=== PATIENT | female | born 1965 | race Caucasian/White ===

== ENCOUNTER 2017-12-16 14:01 | Emergency (ER) | payer OTHER ==
[2017-12-16 14:14] VITALS: BP 161/94
[2017-12-16] MEDS ORDERED: Fosphenytoin 1,000 MG.PE in Sodium Chloride 0.9% 50 ML IV ONE (14:27)
[2017-12-16] MEDS ORDERED: Sodium Chloride 0.9% 10 ML Syringe FLUSH PRN (14:27)
--- NOTE | 2017-12-16 16:20 | EDM.PDOC ---
ED HPI GENERAL MEDICAL PROBLEM - General Chief Complaint: ENT Problem Stated Complaint: BODY PAIN Time Seen by Provider: 12/16/17 14:09 Source of Information: Reports: Patient History Limitations: Reports: No Limitations - History of Present Illness INITIAL COMMENTS - FREE TEXT/NARRATIVE: The patient presents with right facial pain. She has a history of trigeminal neuralgia. She was at the [facility] and she had a nerve ablation done. She got home yesterday. She had more pain today. She called her doctor and he recommended some fosphenytoin. She has no fever, chills, cough, chest pain, abdominal pain, nausea and vomiting. She has no numbness or weakness. Onset: Gradual Duration: Day(s): Location: Reports: Face Quality: Reports: Sharp Severity: Severe Improves with: Reports: None Worsens with: Reports: None Associated Symptoms: Reports: No Other Symptoms - Related Data Allergies Allergy/AdvReac Type Severity Reaction Status Date / Time topiramate Allergy Rash Verified 02/25/16 12:15 Home Meds: Home Meds Cyanocobalamin (Vitamin B-12) [Vitamin B12] 2,500 mcg PO DAILY 02/25/16 [History ] Ibuprofen [Ibuprofen Ib] 400 mg PO DAILY PRN 02/25/16 [History] Nortriptyline 25 mg PO BEDTIME 02/25/16 [History] Ascorbic Acid [C-1000] 1,000 mg PO DAILY 12/16/17 [History] Baclofen 270 mg SUBCNJ DAILY 12/16/17 [History] Cranberry 200 mg PO DAILY 12/16/17 [History] FLUoxetine [PROzac] 40 mg PO DAILY 12/16/17 [History] Loratadine [Alavert] 10 mg PO DAILY 12/16/17 [History] Phenytoin 200 mg PO BEDTIME 12/16/17 [History] Phenytoin 300 mg PO DAILY 12/16/17 [History] SUMAtriptan Succinate [Imitrex] 100 mg PO DAILY 12/16/17 [History] Past Medical History - Past Health History Medical/Surgical History: Denies Medical/Surgical History Neurological History: Reports: MS Social & Family History - Family History Family Medical History: Noncontributory - Tobacco Use Smoking Status *Q: Never Smoker - Caffeine Use Caffeine Use: Reports: Coffee - Recreational Drug Use Recreational Drug Use: No ED ROS ENT - Review of Systems Review Of Systems: See Below Constitutional: Reports: No Symptoms HEENT: Reports: Other (Right facial pain) Respiratory: Reports: No Symptoms Cardiovascular: Reports: No Symptoms Endocrine: Reports: No Symptoms GI/Abdominal: Reports: No Symptoms : Reports: No Symptoms Musculoskeletal: Reports: No Symptoms ED EXAM, ENT - Physical Exam Exam: See Below Exam Limited By: No Limitations General Appearance: Alert, No Apparent Distress Ears: Normal External Exam Nose: Normal Inspection Mouth/Throat: Normal Inspection Head: Atraumatic, Normocephalic Neck: Normal Inspection Respiratory/Chest: No Respiratory Distress, Lungs Clear, Normal Breath Sounds Cardiovascular: Regular Rate, Rhythm, No Edema, No Murmur GI/Abdominal: Soft, Non-Tender, No Organomegaly, No Mass Extremities: Normal Inspection Neurological: Alert, Oriented, No Motor/Sensory Deficits Course - Vital Signs Last Recorded V/S: Last Vital Signs Temp 97.5 F 12/16/17 14:12 Pulse 86 12/16/17 14:12 Resp 20 12/16/17 14:12 BP 161/94 H 12/16/17 14:12 Pulse Ox 100 12/16/17 14:12 - Orders/Labs/Meds Orders: Active Orders 24 hr Category Date Time Status Peripheral IV Care [RC] . DIRECTED Care 12/16/17 14:27 Active Sodium Chloride 0.9% [Saline Flush] Med 12/16/17 14:27 Active 10 ml FLUSH ASDIRECTED PRN Peripheral IV Insertion Adult [OM.PC] Routine Oth 12/16/17 14:27 Ordered Medication Orders Sodium Chloride (Saline Flush) 10 ml FLUSH ASDIRECTED PRN PRN Reason: Keep Vein Open Last Admin: 12/16/17 15:37 Dose: 10 ml Meds: Medications Generic Name Dose Route Start Last Admin Trade Name Freq PRN Reason Stop Dose Admin Sodium Chloride 10 ml 12/16/17 14:27 12/16/17 15:37 Saline Flush FLUSH 10 ml ASDIRECTED PRN Administration Keep Vein Open Discontinued Medications Generic Name Dose Route Start Last Admin Trade Name Freq PRN Reason Stop Dose Admin Fosphenytoin Sodium 1,000 mg. 70 mls @ 150 mls/hr 12/16/17 14:27 12/16/17 15: 37 pe/ Sodium Chloride IV 12/16/17 14:54 Not Given NOW ONE Fosphenytoin Sodium 1,000 mg. 120 mls @ 240 mls/hr 12/16/17 15:30 12/16/17 15 :38 pe/ Sodium Chloride IV 12/16/17 15:59 Not Given NOW ONE Fosphenytoin Sodium 1,000 mg. 120 mls @ 240 mls/hr 12/16/17 15:45 12/16/17 15 :35 pe/ Sodium Chloride IV 12/16/17 16:14 240 mls/hr NOW ONE Administration - Re-Assessments/Exams Free Text/Narrative Re-Assessment/Exam: 12/16/17 16:19 I ordered an IV saline lock fosphenytoin 1 gram IV. 12/16/17 16:20 She feels better. I will discharge her home. Departure - Departure Time of Disposition: 16:20 Disposition: Home, Self-Care 01 Condition: Good Clinical Impression: Trigeminal neuralgia of right side of face - Discharge Information Referrals: Milena Yeager, [employer] [Primary Care Provider] - Additional Instructions: Take your medication as prescribed. Please return if you are worse. - My Orders Last 24 Hours: My Active Orders 12/16/17 14:27 Peripheral IV Care [RC] . DIRECTED Sodium Chloride 0.9% [Saline Flush] 10 ml FLUSH ASDIRECTED PRN Peripheral IV Insertion Adult [OM.PC] Routine - Assessment/Plan Last 24 Hours: My Active Orders 12/16/17 14:27 Peripheral IV Care [RC] . DIRECTED Sodium Chloride 0.9% [Saline Flush] 10 ml FLUSH ASDIRECTED PRN Peripheral IV Insertion Adult [OM.PC] Routine
== END 2017-12-16 16:32 | disposition home or self-care (01) ==
LOC: JD.ED 14:01
DX: G50.0 Trigeminal neuralgia (principal); Z88.8 Allergy status to other drugs, medicaments and biological substances; Z79.899 Other long term (current) drug therapy
CPT/HCPCS: 96365; 99283; J7030; J7050; Q2009; 99284

== ENCOUNTER 2019-06-19 17:48 | Emergency (ER) | payer OTHER ==
[2019-06-19 18:01] VITALS: BP 166/102; PULSE 113
[2019-06-19] MEDS ORDERED: Sodium Chloride 0.9% 10 ML Syringe FLUSH PRN (18:16)
--- NOTE | 2019-06-19 18:23 | EDM.PDOC ---
ED HPI GENERAL MEDICAL PROBLEM - General Chief Complaint: Neurological Problem Stated Complaint: CANT FEEL LEGS HAS MS Time Seen by Provider: 06/19/19 17:58 Source of Information: Reports: Patient, Family, Old Records, RN Notes Reviewed History Limitations: Reports: No Limitations - History of Present Illness INITIAL COMMENTS - FREE TEXT/NARRATIVE: Patient is a 53-year-old female who presents to the ED for the evaluation of a possible exacerbation of her MS. Patient states she has been diagnosed with MS since 1992, her primary care physician is Milena Yeager. Patient notes that she does use a walker for ambulation at home on a regular basis. The states that however today she has been exquisitely weak, he notes that she has not been able to walk and he has had to carry her from point A to point B, patient states her pain is around a 9 out of 10 today. She states that her legs feel extremely heavy from the thighs downward, and states that she has decreased sensation to her legs as well. Patient notes this is happened only once or twice before, patient notes she has a history of recurrent UTIs, and sometimes the symptoms seem to worsen when she has a UTI. Patient states she had felt chilled today, but has not had any documented fever, but the states she feels warm to touch when she states that she is chilled. The appreciated that her urine was a little bit more cloudy than it normally is, but it is not dark yellow, or malodorous. Patient did require IV steroids in 2015 for an exacerbation of her multiple sclerosis. Patient's neurologist is Dr. Randall. Bilateral Lower Leg Pain Score (Numeric/FACES): 9 - Related Data Allergies Allergy/AdvReac Type Severity Reaction Status Date / Time topiramate Allergy Rash Verified 02/25/16 12:15 Home Meds: Home Meds Cyanocobalamin (Vitamin B-12) [Vitamin B12] 2,500 mcg PO DAILY 02/25/16 [History ] Nortriptyline 25 mg PO BEDTIME 02/25/16 [History] Ascorbic Acid [C-1000] 1,000 mg PO DAILY 12/16/17 [History] Baclofen 270 mg SUBCNJ DAILY 12/16/17 [History] Cranberry 200 mg PO DAILY 12/16/17 [History] FLUoxetine [PROzac] 40 mg PO DAILY 12/16/17 [History] Loratadine [Alavert] 10 mg PO DAILY 12/16/17 [History] Phenytoin 300 mg PO BEDTIME 12/16/17 [History] Phenytoin 300 mg PO DAILY 12/16/17 [History] SUMAtriptan Succinate [Imitrex] 100 mg PO DAILY 12/16/17 [History] Cholecalciferol (Vitamin D3) [Vitamin D3] 5,000 unit PO DAILY 06/19/19 [History] Past Medical History - Past Health History Medical/Surgical History: Denies Medical/Surgical History Neurological History: Reports: MS Social & Family History - Family History Family Medical History: Noncontributory - Tobacco Use Smoking Status *Q: Never Smoker - Caffeine Use Caffeine Use: Reports: Coffee - Recreational Drug Use Recreational Drug Use: No ED ROS GENERAL - Review of Systems Review Of Systems: See Below Constitutional: Reports: Chills, Weakness (increased bilateral leg weakness, more than her normal baseline.). Denies: Fever, Malaise Respiratory: Denies: Shortness of Breath Cardiovascular: Denies: Chest Pain GI/Abdominal: Denies: Abdominal Pain, Diarrhea, Nausea, Vomiting : Denies: Dysuria, Frequency, Urgency Musculoskeletal: Reports: Leg Pain (bilateral) Neurological: Reports: Difficulty Walking (d/t generalized bilateral leg weakness.), Weakness (bilateral leg weakness, that is increased from her normal) . Denies: Numbness, Tingling ED EXAM, NEURO - Physical Exam Exam: See Below Exam Limited By: No Limitations General Appearance: Alert, WD/WN, No Apparent Distress Eye Exam: Bilateral Eye: EOMI, Normal Inspection, PERRL Throat/Mouth: Normal Inspection, Normal Lips, Normal Teeth, Normal Gums, Normal Oropharynx, Normal Voice, No Airway Compromise Head Exam: Atraumatic, Normocephalic Neck: Normal Inspection Respiratory/Chest: No Respiratory Distress, Lungs Clear, Normal Breath Sounds, No Accessory Muscle Use, Chest Non-Tender Cardiovascular: Normal Peripheral Pulses, Regular Rate, Rhythm, No Edema, No Murmur GI/Abdominal: Normal Bowel Sounds, Soft, Non-Tender, No Distention, No Mass Neurological: Alert, Normal Mood/Affect, Normal Dorsiflexion, CN II-XII Intact ( grossly), Normal Plantar Flexion, No Motor/Sensory Deficits, Oriented x 3, Difficulty Walking (pt has generalized weakness, worse than normal baseline), Other (strength is symmetric bilaterally, slightly decreased, however she is able to resist me WNL). No: Abnormal Sensation, Abnormal Light Touch, Abnormal Pin Prick, Abn 2 Pt Discrimination, Saddle Anesthesia Extremities: Normal Inspection, Normal Range of Motion, Normal Capillary Refill Psychiatric: Normal Affect, Normal Mood Skin Exam: Warm, Dry, Intact, Normal Color, No Rash Course - Vital Signs Last Recorded V/S: Last Vital Signs Temp 100.6 F 06/19/19 19:03 Pulse 113 H 06/19/19 17:57 Resp 20 06/19/19 17:57 BP 166/102 H 06/19/19 17:57 Pulse Ox 98 06/19/19 17:57 - Orders/Labs/Meds Orders: Active Orders 24 hr Category Date Time Status Insert Tolentino Catheter [Insert Urinary Catheter] [OM.PC] Care 06/19/19 18:30 Ordered Stat Peripheral IV Care [RC] . DIRECTED Care 06/19/19 18:16 Active Urinary Catheter Assessment [RC] ASDIRECTED Care 06/19/19 18:30 Active Sodium Chloride 0.9% [Saline Flush] Med 06/19/19 18:16 Active 10 ml FLUSH ASDIRECTED PRN Peripheral IV Insertion Adult [OM.PC] Stat Oth 06/19/19 18:16 Ordered Medication Orders Sodium Chloride (Saline Flush) 10 ml FLUSH ASDIRECTED PRN PRN Reason: Keep Vein Open Last Admin: 06/19/19 18:25 Dose: 10 ml Labs: Laboratory Tests 06/19/19 06/19/19 06/19/19 Range/Units 18:25 18:25 18:30 WBC 8.08 (3.98-10.04) K/mm3 RBC 4.45 (3.98-5.22) M/mm3 Hgb 13.6 (11.2-15.7) gm/dl Hct 40.7 (34.1-44.9) % MCV 91.5 (79.4-94.8) fl MCH 30.6 (25.6-32.2) pg MCHC 33.4 (32.2-35.5) g/dl RDW Std Deviation 42.8 (36.4-46.3) fL Plt Count 203 D (182-369) K/mm3 MPV 10.1 (9.4-12.3) fl Neut % (Auto) 83.4 H (34.0-71.1) % Lymph % (Auto) 6.4 L (19.3-51.7) % [place] % (Auto) 9.9 (4.7-12.5) % Eos % (Auto) 0.1 L (0.7-5.8) Baso % (Auto) 0.1 (0.1-1.2) % Neut # (Auto) 6.73 H (1.56-6.13) K/mm3 Lymph # (Auto) 0.52 L (1.18-3.74) K/mm3 [place] # (Auto) 0.80 H (0.24-0.36) K/mm3 Eos # (Auto) 0.01 L (0.04-0.36) K/mm3 Baso # (Auto) 0.01 (0.01-0.08) K/mm3 Manual Slide Review Normal smear Sodium 144 (136-145) mEq/L Potassium 3.8 (3.5-5.1) mEq/L Chloride 103 (98-107) mEq/L Carbon Dioxide 30 (21-32) mEq/L Anion Gap 14.8 (5-15) BUN 10 (7-18) mg/dL Creatinine 0.6 (0.55-1.02) mg/dL Est Cr Clr Drug Dosing 94.25 mL/min Estimated GFR (MDRD) > 60 (>60) mL/min BUN/Creatinine Ratio 16.7 (14-18) Glucose 123 H (74-106) mg/dL Calcium 9.1 (8.5-10.1) mg/dL Total Bilirubin 0.4 (0.2-1.0) mg/dL AST 14 L (15-37) U/L ALT 22 (14-59) U/L Alkaline Phosphatase 131 H (46-116) U/L Total Protein 8.0 (6.4-8.2) g/dl Albumin 4.5 (3.4-5.0) g/dl Globulin 3.5 gm/dL Albumin/Globulin Ratio 1.3 (1-2) Urine Color Light yellow (Yellow) Urine Appearance Slt cloudy H (Clear) Urine pH 8.5 H (5.0-8.0) Ur Specific [place] 1.020 (1.005-1.030) Urine Protein 1+ H (Negative) Urine Glucose (UA) Negative (Negative) Urine Ketones Negative (Negative) Urine Occult Blood Trace-intact H (Negative) Urine Nitrite Negative (Negative) Urine Bilirubin Negative (Negative) Urine Urobilinogen 1.0 (0.2-1.0) Ur Leukocyte Esterase Negative (Negative) Urine RBC 5-10 H (0-5) /hpf Urine WBC 0-5 (0-5) /hpf Ur Epithelial Cells 0-5 (0-5) /hpf Amorphous Sediment Many H (NOT SEEN) /hpf Urine Bacteria Few (FEW) /hpf Urine Mucus Few (FEW) /hpf Meds: Medications Generic Name Dose Route Start Last Admin Trade Name Freq PRN Reason Stop Dose Admin Sodium Chloride 10 ml 06/19/19 18:16 06/19/19 18:25 Saline Flush FLUSH 10 ml ASDIRECTED PRN Administration Keep Vein Open Discontinued Medications Generic Name Dose Route Start Last Admin Trade Name Freq PRN Reason Stop Dose Admin Acetaminophen 650 mg 06/19/19 18:42 06/19/19 19:03 Tylenol PO 06/19/19 18:43 650 mg NOW ONE Administration - Re-Assessments/Exams Free Text/Narrative Re-Assessment/Exam: 06/19/19 18:25 Patient presents to the ED for the evaluation of increased bilateral leg weakness and numbness. Since the patient has a history of recurrent UTIs that seem to exacerbate the symptoms, will get a catheterized urine specimen, obtain a CBC and CMP and place an IV line for initial management. If urinalysis is clean, no other focal lab abnormalities. We will consult neurology and possibly set her up for steroid therapy. 06/19/19 20:47 Patient's labs have resulted, and demonstrate no focal abnormalities, she does not have a UTI by lab standards at today's visit. I did call [facility] in [place] and was able to talk with the neurologist, Dr. Crain, he states that he is not familiar with the patient's course, so he would not feel comfortable saying to start IV steroids at this time, and he recommends that she have close follow-up with Dr. Randall, her neurologist, tomorrow morning, to see if he would like to order the IV steroids. At this time I did discuss this with the patient, and she is accepting of this plan at this time. I will fax my note to Dr. Randall's office, so he will have record of tonight's visit. Departure - Departure Time of Disposition: 20:48 Disposition: Home, Self-Care 01 Condition: Fair Clinical Impression: Multiple sclerosis exacerbation - Discharge Information *PRESCRIPTION DRUG MONITORING PROGRAM REVIEWED*: No *COPY OF PRESCRIPTION DRUG MONITORING REPORT IN PATIENT MARSHALL: No Instructions: Multiple Sclerosis Referrals: Milena Yeager, [employer] [Primary Care Provider] - Forms: ED Department Discharge Additional Instructions: You were evaluated in the ER today regarding your increased leg weakness. Your laboratory evaluation was essentially within normal limits, there are no acute focal abnormalities that require emergency attention. Your urinalysis was also negative for UTI. Your symptoms are most likely due to an exacerbation of your MS, the use of high-dose IV steroids, can have multiple systemic side effects. Neurology was consulted on your case, and they recommended close follow-up with your neurologist, Dr. Randall tomorrow, to see if he would be comfortable starting you on the high dose of steroids, since he is familiar your with your case. A copy of my note will be sent to his office, for his review tomorrow morning. Please return to the ER at any time if your symptoms change or worsen. Sepsis Event Note - Evaluation Sepsis Screening Result: No Definite Risk - Focused Exam Vital Signs: Vital Signs Temp Temp Pulse Resp BP Pulse Ox 06/19/19 19:03 100.6 F 06/19/19 17:57 98.4 F 113 H 20 166/102 H 98 Date Exam was Performed: 06/19/19 Time Exam was Performed: 20:47 - My Orders Last 24 Hours: My Active Orders 06/19/19 18:16 Peripheral IV Care [RC] . DIRECTED Sodium Chloride 0.9% [Saline Flush] 10 ml FLUSH ASDIRECTED PRN Peripheral IV Insertion Adult [OM.PC] Stat 06/19/19 18:30 Insert Tolentino Catheter [Insert Urinary Catheter] [OM.PC] Stat Urinary Catheter Assessment [RC] ASDIRECTED - Assessment/Plan Last 24 Hours: My Active Orders 06/19/19 18:16 Peripheral IV Care [RC] . DIRECTED Sodium Chloride 0.9% [Saline Flush] 10 ml FLUSH ASDIRECTED PRN Peripheral IV Insertion Adult [OM.PC] Stat 06/19/19 18:30 Insert Tol[place]ino Catheter [Insert Urinary Catheter] [OM.PC] Stat Urinary Catheter Assessment [RC] ASDIRECTED
[2019-06-19] MEDS ORDERED: Acetaminophen 325 MG Tab PO ONE (18:42)
== END 2019-06-19 21:10 | disposition home or self-care (01) ==
LOC: JD.ED 17:48
DX: G35 Multiple sclerosis (principal); Z79.899 Other long term (current) drug therapy; Z88.8 Allergy status to other drugs, medicaments and biological substances
CPT/HCPCS: 36415; 80053; 81001; 85025; 99284; A9270

== ENCOUNTER 2021-06-26 06:55 | Emergency (ER) | payer OTHER ==
[2021-06-26 07:35] VITALS: BP 132/88; PULSE 92
--- NOTE | 2021-06-26 07:44 | EDM.PDOC ---
ED HPI GENERAL MEDICAL PROBLEM - General Chief Complaint: General Stated Complaint: UTI LEG PAIN WEAKNESS Time Seen by Provider: 06/26/21 07:35 - History of Present Illness INITIAL COMMENTS - FREE TEXT/NARRATIVE: 55-year-old presents the emergency room with upper airway congestion and lower extremity weakness. Patient has a history of MS and oftentimes has UTIs that trigger her lower extremity weakness. And according to the patient is treating the UTIs makes her weakness better. Patient has not had the Covid vaccine. She is also had some upper airway congestion and runny nose symptoms for the last couple of days. Her weakness was first noticed on Monday but was very mild and progressively worsened to today, Monday. The patient is not aware of any fevers or chills. She has not had the Covid vaccine however had Covid back in March. For the last several days she has developed significant lower extremity weakness consistent with her MS flares. Her had to nearly carry her into the department. - Related Data Allergies Allergy/AdvReac Type Severity Reaction Status Date / Time Sulfa (Sulfonamide Allergy Hives Verified 06/26/21 07:35 Antibiotics) topiramate Allergy Rash Verified 02/25/16 12:15 Home Meds: Home Meds Cyanocobalamin (Vitamin B-12) [Vitamin B12] 2,500 mcg PO DAILY 02/25/16 [History] Nortriptyline 25 mg PO BEDTIME 02/25/16 [History] Ascorbic Acid [C-1000] 1,000 mg PO DAILY 12/16/17 [History] Baclofen 270 mg SUBCNJ DAILY 12/16/17 [History] Cranberry 200 mg PO DAILY 12/16/17 [History] FLUoxetine [PROzac] 40 mg PO DAILY 12/16/17 [History] Loratadine [Alavert] 10 mg PO DAILY 12/16/17 [History] Phenytoin 300 mg PO BEDTIME 12/16/17 [History] Phenytoin 300 mg PO DAILY 12/16/17 [History] SUMAtriptan succinate [Imitrex] 100 mg PO DAILY 12/16/17 [History] Cholecalciferol (Vitamin D3) [Vitamin D3] 5,000 unit PO DAILY 06/19/19 [History] Oseltamivir [Tamiflu] 75 mg PO BID #9 cap 06/26/21 [Rx] Past Medical History - Past Health History Medical/Surgical History: Denies Medical/Surgical History Neurological History: Reports: MS Social & Family History - Family History Family Medical History: No Pertinent Family History - Caffeine Use Caffeine Use: Reports: Coffee ED ROS GENERAL - Review of Systems Review Of Systems: See Below Constitutional: Reports: Weakness. Denies: Fever, Chills HEENT: Reports: Rhinitis. Denies: Ear Pain, Throat Pain Respiratory: Reports: No Symptoms Cardiovascular: Reports: No Symptoms GI/Abdominal: Reports: No Symptoms : Reports: No Symptoms Musculoskeletal: Reports: No Symptoms Skin: Reports: No Symptoms ED EXAM, GENERAL - Physical Exam Exam: See Below Exam Limited By: No Limitations General Appearance: Alert, No Apparent Distress Eye Exam: Bilateral Eye: Normal Inspection Ears: Normal External Exam, Normal Canal, Hearing Grossly Normal, Normal TMs Nose: Normal Inspection, Normal Mucosa, No Blood Throat/Mouth: Normal Inspection, Normal Lips, Normal Teeth, Normal Gums, Normal Oropharynx, Normal Voice, No Airway Compromise Head: Atraumatic, Normocephalic Neck: Normal Inspection, Supple, Non-Tender, Full Range of Motion. No: Lymphadenopathy (L), Lymphadenopathy (R) Respiratory/Chest: No Respiratory Distress, Lungs Clear, Normal Breath Sounds Cardiovascular: Regular Rate, Rhythm, No Edema, No Murmur GI/Abdominal: Normal Bowel Sounds, Soft, Non-Tender Back Exam: Normal Inspection, Other (She has generalized low back pain but attributes this to her back surgery she had done this last August.). No: CVA Tenderness (L), CVA Tenderness (R) Neurological: Alert, Oriented, Normal Cognition Course - Vital Signs Last Recorded V/S: Last Vital Signs Temp 36.4 C 06/26/21 07:30 Pulse 92 06/26/21 07:30 Resp 18 06/26/21 07:30 BP 132/88 06/26/21 07:30 Pulse Ox 96 06/26/21 07:30 - Orders/Labs/Meds Orders: Active Orders 24 hr Category Date Time Status Insert Tolentino Catheter [Insert Urinary Catheter] [OM.PC] Care 06/26/21 08:15 Ordered Q24H Urinary Catheter Assessment [RC] ASDIRECTED Care 06/26/21 08:14 Active Labs: Laboratory Tests 06/26/21 06/26/21 06/26/21 Range/Units 07:55 07:55 08:02 WBC 5.00 (3.98-10.04) K/mm3 RBC 4.67 (3.98-5.22) M/mm3 Hgb 13.2 D (11.2-15.7) gm/dl Hct 41.7 (34.1-44.9) % MCV 89.3 D (79.4-94.8) fl MCH 28.3 (25.6-32.2) pg MCHC 31.7 L (32.2-35.5) g/dl RDW Std Deviation 49.0 H (36.4-46.3) fL Plt Count 190 D (182-369) K/mm3 MPV 10.6 (9.4-12.3) fl Neut % (Auto) 74.2 H (34.0-71.1) % Lymph % (Auto) 13.4 L (19.3-51.7) % Logan % (Auto) 12.0 (4.7-12.5) % Eos % (Auto) 0 L (0.7-5.8) Baso % (Auto) 0.4 (0.1-1.2) % Neut # (Auto) 3.71 (1.56-6.13) K/mm3 Lymph # (Auto) 0.67 L (1.18-3.74) K/mm3 Logan # (Auto) 0.60 H (0.24-0.36) K/mm3 Eos # (Auto) 0.00 L (0.04-0.36) K/mm3 Baso # (Auto) 0.02 (0.01-0.08) K/mm3 Sodium 141 (136-145) mEq/L Potassium 3.2 L (3.5-5.1) mEq/L Chloride 102 (98-107) mEq/L Carbon Dioxide 32 (21-32) mEq/L Anion Gap 10.2 (5-15) BUN 16 (7-18) mg/dL Creatinine 0.7 (0.55-1.02) mg/dL Est Cr Clr Drug Dosing 82.67 mL/min Estimated GFR (MDRD) > 60 (>60) mL/min BUN/Creatinine Ratio 22.9 H (14-18) Glucose 103 H (70-99) mg/dL Calcium 8.5 (8.5-10.1) mg/dL Total Bilirubin 0.4 (0.2-1.0) mg/dL AST 20 (15-37) U/L ALT 21 (14-59) U/L Alkaline Phosphatase 96 (46-116) U/L Total Protein 7.7 (6.4-8.2) g/dl Albumin 3.8 (3.4-5.0) g/dl Globulin 3.9 gm/dL Albumin/Globulin Ratio 1.0 (1-2) Urine Color (Yellow) Urine Appearance (Clear) Urine pH (5.0-8.0) Ur Specific [place] (1.005-1.030) Urine Protein (Negative) Urine Glucose (UA) (Negative) Urine Ketones (Negative) Urine Occult Blood (Negative) Urine Nitrite (Negative) Urine Bilirubin (Negative) Urine Urobilinogen (0.2-1.0) Ur Leukocyte Esterase (Negative) Urine RBC (0-5) /hpf Urine WBC (0-5) /hpf Ur Epithelial Cells (0-5) /hpf Urine Bacteria (FEW) /hpf Urine Mucus (FEW) /hpf Influenza Type A RNA Positive H (NEGATIVE) Influenza Type B RNA Negative (NEGATIVE) SARS-CoV-2 RNA (DANE) Negative (NEGATIVE) 06/26/21 Range/Units 08:13 WBC (3.98-10.04) K/mm3 RBC (3.98-5.22) M/mm3 Hgb (11.2-15.7) gm/dl Hct (34.1-44.9) % MCV (79.4-94.8) fl MCH (25.6-32.2) pg MCHC (32.2-35.5) g/dl RDW Std Deviation (36.4-46.3) fL Plt Count (182-369) K/mm3 MPV (9.4-12.3) fl Neut % (Auto) (34.0-71.1) % Lymph % (Auto) (19.3-51.7) % Logan % (Auto) (4.7-12.5) % Eos % (Auto) (0.7-5.8) Baso % (Auto) (0.1-1.2) % Neut # (Auto) (1.56-6.13) K/mm3 Lymph # (Auto) (1.18-3.74) K/mm3 Logan # (Auto) (0.24-0.36) K/mm3 Eos # (Auto) (0.04-0.36) K/mm3 Baso # (Auto) (0.01-0.08) K/mm3 Sodium (136-145) mEq/L Potassium (3.5-5.1) mEq/L Chloride (98-107) mEq/L Carbon Dioxide (21-32) mEq/L Anion Gap (5-15) BUN (7-18) mg/dL Creatinine (0.55-1.02) mg/dL Est Cr Clr Drug Dosing mL/min Estimated GFR (MDRD) (>60) mL/min BUN/Creatinine Ratio (14-18) Glucose (70-99) mg/dL Calcium (8.5-10.1) mg/dL Total Bilirubin (0.2-1.0) mg/dL AST (15-37) U/L ALT (14-59) U/L Alkaline Phosphatase (46-116) U/L Total Protein (6.4-8.2) g/dl Albumin (3.4-5.0) g/dl Globulin gm/dL Albumin/Globulin Ratio (1-2) Urine Color Yellow (Yellow) Urine Appearance Clear (Clear) Urine pH 6.0 (5.0-8.0) Ur Specific [place] > or = 1.030 (1.005-1.030) Urine Protein 1+ H (Negative) Urine Glucose (UA) Negative (Negative) Urine Ketones 1+ H (Negative) Urine Occult Blood 2+ H (Negative) Urine Nitrite Negative (Negative) Urine Bilirubin 1+ H (Negative) Urine Urobilinogen 0.2 (0.2-1.0) Ur Leukocyte Esterase Negative (Negative) Urine RBC 0-5 (0-5) /hpf Urine WBC 0-5 (0-5) /hpf Ur Epithelial Cells 0-5 (0-5) /hpf Urine Bacteria Few (FEW) /hpf Urine Mucus Moderate H (FEW) /hpf Influenza Type A RNA (NEGATIVE) Influenza Type B RNA (NEGATIVE) SARS-CoV-2 RNA (DANE) (NEGATIVE) Meds: Medications Discontinued Medications Generic Name Dose Route Start Last Admin Trade Name Freq PRN Reason Stop Dose Admin Methylprednisolone Sodium 258 mls @ 258 mls/hr 06/26/21 09:55 06/26/21 10:40 Succinate 1,000 mg/ Sodium IV 06/26/21 09:56 258 mls/hr Chloride ONETIME ONE Administration Oseltamivir Phosphate 75 mg 06/26/21 09:56 06/26/21 10:40 Oseltamivir 75 Mg Cap PO 06/26/21 09:57 75 mg ONETIME ONE Administration - Re-Assessments/Exams Free Text/Narrative Re-Assessment/Exam: 06/26/21 10:01 Patient's case was discussed with Dr. Covarrubias, on-call neurologist at [facility] in [facility] for Dr. Randall, the patient's regular neurologist. His recommendation was offered a head CT this was declined by the patient she has had gradual onset of symptoms starting Monday. He also recommended high-dose steroids, 1000 mg of Solu-Medrol for the next 3 days. I discussed the pros and cons with the patient and in the setting of her being influenza A positive. She has a history of having UTIs triggered her MS in treating the UTIs makes her MS flares better. Steroids in the past seem to cause slight worsening then improvement when she has had these in the past. It is unclear how she will do with this but she is in agreement to trying it. Patient will also be started on Tamiflu. Patient's URI symptoms are going back nearly 36 to 48 hours. Departure - Departure Time of Disposition: 10:16 Disposition: Home, Self-Care 01 Clinical Impression: Multiple sclerosis, Influenza A, Multiple sclerosis exacerbation - Discharge Information Prescriptions: Oseltamivir [Tamiflu] 75 mg PO BID #9 cap Referrals: Milena Yeager, [employer] [Primary Care Provider] - Forms: ED Department Discharge Additional Instructions: Return to the emergency room with any questions problems or worsening symptoms. Follow-up with your neurologist on the phone on Monday. Return tomorrow and Monday for steroid infusions. You have been started on Tamiflu this was sent electronically to the [place] pharmacy in the [place] [place]. They are open between 1 and 3 this afternoon take 1 twice daily starting this evening until gone your first dose was given here in the emergency room. Sepsis Event Note (ED) - Evaluation Sepsis Screening Result: No Definite Risk - Focused Exam Vital Signs: Vital Signs Temp Pulse Resp BP Pulse Ox 06/26/21 07:30 36.4 C 92 18 132/88 96 - My Orders Last 24 Hours: My Active Orders 06/26/21 08:14 Urinary Catheter Assessment [RC] ASDIRECTED 06/26/21 08:15 Insert Tolentino Catheter [Insert Urinary Catheter] [OM.PC] Q24H - Assessment/Plan Last 24 Hours: My Active Orders 06/26/21 08:14 Urinary Catheter Assessment [RC] ASDIRECTED 06/26/21 08:15 Insert Tolentino Catheter [Insert Urinary Catheter] [OM.PC] Q24H
[2021-06-26 08:41] LABS: CORONAVIRUS COVID-19 NAA NEGATIVE (NEGATIVE)
[2021-06-26] MEDS ORDERED: Oseltamivir 75 MG Cap PO ONE (09:56)
== END 2021-06-26 11:58 | disposition home or self-care (01) ==
LOC: JD.ED 06:55
DX: G35 Multiple sclerosis (principal); J10.1 Influenza due to other identified influenza virus with other respiratory manifestations; Z88.2 Allergy status to sulfonamides; Z88.8 Allergy status to other drugs, medicaments and biological substances; Z79.899 Other long term (current) drug therapy; Z20.822 Contact with and (suspected) exposure to COVID-19
CPT/HCPCS: 0240U; 36415; 80053; 81001; 85025; 96365; 99284; A9270; J2930; J7050

== ENCOUNTER 2022-06-28 15:50 | Emergency (ER) | payer BC, OTHER ==
[2022-06-28 17:22] VITALS: BP 160/106; PULSE 116
[2022-06-28] MEDS ORDERED: Ondansetron 4 MG/2 ML SDV IVPUSH ONE (18:24)
[2022-06-28] MEDS ORDERED: Lactated Ringers 1,000 ML IV SCH (18:30)
[2022-06-28] MEDS ORDERED: methylPREDNISolone Sodium Succinate 125 MG/2 ML SDV IVPUSH STA (21:20)
== END 2022-06-28 23:00 | disposition home or self-care (01) ==
LOC: JD.ED 15:50
DX: S86.912A Strain of unspecified muscle(s) and tendon(s) at lower leg level, left leg, initial encounter (principal); G35 Multiple sclerosis; B97.4 Respiratory syncytial virus as the cause of diseases classified elsewhere; Z88.2 Allergy status to sulfonamides; Z88.8 Allergy status to other drugs, medicaments and biological substances
CPT/HCPCS: 36415; 51702; 73562; 80053; 81001; 85025; 87086; 96361; 96374; 96375; 99283; J2405; J2930; J7120

== ENCOUNTER 2023-07-04 16:58 | Emergency (ER) | payer BC ==
[2023-07-04] MEDS ORDERED: Magnesium Citrate Solution 296 ML Bottle PO ONE (19:08)
[2023-07-04] MEDS ORDERED: Magnesium Citrate Solution 296 ML Bottle ONE (20:34)
[2023-07-04 20:50] VITALS: BP 141/75; PULSE 80
== END 2023-07-04 20:49 | disposition home or self-care (01) ==
LOC: JD.ED 16:58
DX: K59.00 Constipation, unspecified (principal); Z86.16 Personal history of COVID-19; Z79.899 Other long term (current) drug therapy; Z88.2 Allergy status to sulfonamides; Z88.8 Allergy status to other drugs, medicaments and biological substances
CPT/HCPCS: 99283; A9270; 99282